=== PATIENT | female | born 1980 | race Caucasian/White ===

== ENCOUNTER 2020-09-06 08:44 | Outpatient (CLI) | payer BC | END 2020-09-06 08:45 | disposition home or self-care (01) | LOC: DTY/OP 08:44 | PROVIDERS: ATTEND Surgery | DX: Z68.42 Body mass index [BMI] 45.0-49.9, adult (principal) | CPT/HCPCS: 97802 ==

== ENCOUNTER 2021-02-28 09:13 | Outpatient (CLI) | payer BC | END 2021-02-28 09:14 | disposition home or self-care (01) | LOC: CTENTCT 09:13 | PROVIDERS: ATTEND Student in an Organized Health Care Education/Training Program | DX: J34.2 Deviated nasal septum (principal) | CPT/HCPCS: 70486 ==

== ENCOUNTER 2021-04-03 07:45 | Day surgery (SDC) | payer BC ==
[2021-04-02 10:01] VITALS: BMI 44.8
[2021-04-03] MEDS ORDERED: Fentanyl 250 MCG/5 ML VIAL ONE (08:24)
[2021-04-03] MEDS ORDERED: AFRIN NASAL MIST 15 ML BOT ONE ×2 (09:11→09:20)
[2021-04-03] MEDS ORDERED: Lidocaine 1% w/Epinephrine 1:100K 20 ML VIAL ONE (09:20)
[2021-04-03] MEDS ORDERED: Acetaminophen 500 MG TAB ONE (09:27)
[2021-04-03] MEDS ORDERED: Propofol 1,000 MG/100 ML VIAL IV ONE (09:28)
[2021-04-03] MEDS ORDERED: ePHEDrine Sulfate 50 MG/10 ML VIAL ONE (09:39)
[2021-04-03] MEDS ORDERED: Rocuronium Bromide 10 MG/ML (10ML VIAL) ONE (09:39)
[2021-04-03] MEDS ORDERED: Lidocaine 1% PF 5 ML VIAL ONE (09:39)
[2021-04-03] MEDS ORDERED: PROPOFOL 200 MG/20 ML VIAL ONE (09:39)
[2021-04-03] MEDS ORDERED: Ketorolac Tromethamine 30 MG/ML VIAL ONE (09:39)
[2021-04-03] MEDS ORDERED: Labetalol HCl 100 MG/20 ML VIAL ONE (09:39)
[2021-04-03] MEDS ORDERED: PHENYLEPHRINE-NS 100 MCG/ML 10 ML SYRINGE ONE (09:39)
[2021-04-03] MEDS ORDERED: Ondansetron PF 4 MG/2 ML Vial ONE (09:39)
[2021-04-03] MEDS ORDERED: Dexamethasone 20 MG/5 ML VIAL ONE (09:39)
[2021-04-03] MEDS ORDERED: Fentanyl 100 MCG/2 ML VIAL ONE (11:45)
== END 2021-04-03 15:15 | disposition home or self-care (01) ==
LOC: SDC 07:45
PROVIDERS: ATTEND Student in an Organized Health Care Education/Training Program
PROC: 09BL8ZZ Excision of Nasal Turbinate, Via Natural or Artificial Opening Endoscopic (ICD-10-PCS; principal; 2021-04-03)
PROC: 09SM4ZZ Reposition Nasal Septum, Percutaneous Endoscopic Approach (ICD-10-PCS; principal; 2021-04-03)
DX: J34.2 Deviated nasal septum (principal); J34.3 Hypertrophy of nasal turbinates; J01.91 Acute recurrent sinusitis, unspecified; J34.89 Other specified disorders of nose and nasal sinuses; J30.9 Allergic rhinitis, unspecified; K21.9 Gastro-esophageal reflux disease without esophagitis; I10 Essential (primary) hypertension; M17.11 Unilateral primary osteoarthritis, right knee; E66.9 Obesity, unspecified; Z68.41 Body mass index [BMI] 40.0-44.9, adult; Z79.899 Other long term (current) drug therapy
CPT/HCPCS: J0690; J1100; J1885; J2405; J2704; J3010

== ENCOUNTER 2022-07-22 10:58 | Outpatient (CLI) | payer BC | END 2022-07-22 10:59 | disposition home or self-care (01) | LOC: BICMAMMO 10:58 | PROVIDERS: ATTEND Student in an Organized Health Care Education/Training Program | DX: Z12.31 Encounter for screening mammogram for malignant neoplasm of breast (principal) | CPT/HCPCS: 77063; 77067 ==

== ENCOUNTER 2022-09-18 17:38 | Observation (INO) | payer BC ==
[2022-09-18 18:09] LABS: #Basophils 0.1 thou/uL (0.0-0.2); #Eosinphils 0.1 thou/uL (0.0-0.7); #Lymphocytes 4.4 thou/uL (1.20-3.40); #Monocytes 0.7 thou/uL (0.11-0.59); #Neutrophils 6.6 thou/uL (1.40-6.50); %Basophils 0.6 % (0.0-1.0); %Eosinophils 0.9 % (0.0-10.0); %Lymphocytes 36.8 % (21.0-51.0); %Monocytes 5.8 % (0.0-10.0); %Neutrophils 55.8 % (42.0-75.0); Hemoglobin 12.9 g/dL (12.0-16.0); Mean Corpuscular HGB CONC 31.9 g/dL (32.0-36.0); Mean Corpuscular Volume 78.3 fl (78.0-98.0); Mean Platelet Volume 7.7 fL (7.4-10.4); Platelet Count 262 10x3/uL (130-400); RBC Distribution Width 13.8 % (11.5-14.5); Red Blood Cell (RBC) Count 5.14 mill/uL (4.20-5.40); White Blood Cell (WBC) Count 11.8 10x3/uL (4.8-10.8)
[2022-09-18] MEDS ORDERED: Nitroglycerin 2% Ointment 1 INCH/1 GM Packet ONE (18:18)
[2022-09-18] MEDS ORDERED: Aspirin Chewable 81 MG TAB ONE (18:18)
[2022-09-18 18:48] LABS: ALT (SGPT) 13 U/L (8-55); AST (SGOT) 14 U/L (5-34); Albumin 3.8 g/dL (3.5-5.0); Alkaline Phosphatase 85 U/L (40-110); Anion Gap 14 mmol/L (10-20); BUN (Urea Nitrogen) 10 mg/dL (7.0-18.7); Bilirubin, Total 0.4 mg/dL (0.2-1.2); Calc. Creatinine Clearance 0 mL/min (70-130); Calcium 8.9 mg/dL (7.8-10.44); Carbon Dioxide 25 mmol/L (22-29); Chloride 101 mmol/L (98-107); Estimated GFR 93; Glucose 89 mg/dL (70-105); Lipase 19 U/L (8-78); Potassium 3.9 mmol/L (3.5-5.1); Protein, Total 6.8 g/dL (6.0-8.3); Sodium 136 mmol/L (136-145)
[2022-09-18] MEDS ORDERED: Ondansetron ODT 4 MG TAB PO PRN (21:35)
[2022-09-18] MEDS ORDERED: Acetaminophen 325 MG TAB PO PRN (21:35)
[2022-09-18] MEDS ORDERED: Nitroglycerin 0.4 MG TAB (25 Tab Bottle) SL PRN (21:36)
[2022-09-18 22:16] VITALS: BMI 46.2
[2022-09-19] MEDS: Nitroglycerin 2% Ointment 1 INCH/1 GM Packet TOP SCH ×4 (01:08→20:44)
[2022-09-19 04:58] LABS: #Eosinphils 0.1 thou/uL (0.0-0.7); #Lymphocytes 4.3 thou/uL (1.20-3.40); #Monocytes 0.6 thou/uL (0.11-0.59); #Neutrophils 4.1 thou/uL (1.40-6.50); %Basophils 0.4 % (0.0-1.0); %Eosinophils 1.4 % (0.0-10.0); %Lymphocytes 47.3 % (21.0-51.0); %Monocytes 6.3 % (0.0-10.0); %Neutrophils 44.6 % (42.0-75.0); Hemoglobin 11.9 g/dL (12.0-16.0); Mean Corpuscular HGB CONC 31.7 g/dL (32.0-36.0); Mean Corpuscular Hemoglobin 25.1 pg (27.0-31.0); Mean Platelet Volume 7.6 fL (7.4-10.4); Platelet Count 239 10x3/uL (130-400); RBC Distribution Width 13.7 % (11.5-14.5); Red Blood Cell (RBC) Count 4.73 mill/uL (4.20-5.40); White Blood Cell (WBC) Count 9.2 10x3/uL (4.8-10.8)
[2022-09-19 05:19] LABS: Anion Gap 9 mmol/L (10-20); BUN (Urea Nitrogen) 10 mg/dL (7.0-18.7); Calc. Creatinine Clearance 227 mL/min (70-130); Calcium 8.5 mg/dL (7.8-10.44); Carbon Dioxide 28 mmol/L (22-29); Cardiac Risk 4.5 (Less than 4.5); Chloride 105 mmol/L (98-107); Cholesterol 154 mg/dl (< 200 Desired); Estimated GFR 109; Glucose 95 mg/dL (70-105); HDL Cholesterol 34 mg/dL (>60 Neg Risk); LDL Cholesterol, Calculated 94 mg/dL; Magnesium 2.1 mg/dL (1.6-2.6); Potassium 3.4 mmol/L (3.5-5.1); Sodium 139 mmol/L (136-145); Triglycerides 132 mg/dL (Less than 150)
[2022-09-19] MEDS: Amlodipine 5 MG TAB PO SCH (08:06)
[2022-09-19] MEDS: Enoxaparin Sodium 40 MG/0.4 ML SYRINGE SC SCH (08:06)
[2022-09-19] MEDS: Aspirin Chewable 81 MG TAB PO SCH (08:06)
[2022-09-19] MEDS ORDERED: Regadenoson 0.4 MG/5 ML SYRINGE ONE (12:19)
[2022-09-19] MEDS ORDERED: Atorvastatin Calcium 40 MG TAB PO SCH (21:00)
[2022-09-20] MEDS ORDERED: Calcium Carbonate 500 MG ChewTAB PO PRN (00:19)
[2022-09-20 04:58] LABS: #Basophils 0.1 thou/uL (0.0-0.2); #Eosinphils 0.2 thou/uL (0.0-0.7); #Lymphocytes 4.2 thou/uL (1.20-3.40); #Monocytes 0.8 thou/uL (0.11-0.59); %Basophils 0.5 % (0.0-1.0); %Eosinophils 1.8 % (0.0-10.0); %Lymphocytes 46.1 % (21.0-51.0); %Monocytes 8.1 % (0.0-10.0); %Neutrophils 43.5 % (42.0-75.0); Hemoglobin 12.2 g/dL (12.0-16.0); Mean Corpuscular Hemoglobin 24.4 pg (27.0-31.0); Mean Corpuscular Volume 78.7 fl (78.0-98.0); Mean Platelet Volume 7.5 fL (7.4-10.4); Platelet Count 254 10x3/uL (130-400); RBC Distribution Width 13.7 % (11.5-14.5); Red Blood Cell (RBC) Count 4.98 mill/uL (4.20-5.40); White Blood Cell (WBC) Count 9.2 10x3/uL (4.8-10.8)
[2022-09-20 05:48] LABS: Anion Gap 11 mmol/L (10-20); BUN (Urea Nitrogen) 12 mg/dL (7.0-18.7); Calc. Creatinine Clearance 227 mL/min (70-130); Carbon Dioxide 23 mmol/L (22-29); Chloride 106 mmol/L (98-107); Estimated GFR 109; Glucose 95 mg/dL (70-105); Potassium 3.7 mmol/L (3.5-5.1); Sodium 136 mmol/L (136-145)
[2022-09-20] MEDS: Enoxaparin Sodium 40 MG/0.4 ML SYRINGE SC SCH (09:37)
[2022-09-20] MEDS: Aspirin Chewable 81 MG TAB PO SCH (09:37)
[2022-09-20] MEDS: Amlodipine 5 MG TAB PO SCH (09:38)
[2022-09-20] MEDS: Nitroglycerin 2% Ointment 1 INCH/1 GM Packet TOP SCH ×2 (10:09→13:22)
[2022-09-20 12:36] VITALS: BP 129/57; TEMP 97.6
[2022-09-21] MEDS ORDERED: FLU VACC QS2022-23(6MOS UP)/PF 60 MCG/0.5 ML SYRINGE IM ONE (09:00)
== END 2022-09-20 15:24 | disposition home or self-care (01) ==
LOC: ERS 17:38 → 2SW 20:44
PROVIDERS: ADMIT Student in an Organized Health Care Education/Training Program; ATTEND Internal Medicine
DX: R07.89 Other chest pain (principal); I10 Essential (primary) hypertension; K21.9 Gastro-esophageal reflux disease without esophagitis; R05.3 Chronic cough; M15.9 Polyosteoarthritis, unspecified; E66.9 Obesity, unspecified; Z68.42 Body mass index [BMI] 45.0-49.9, adult; Z79.899 Other long term (current) drug therapy; Z20.822 Contact with and (suspected) exposure to COVID-19
CPT/HCPCS: 36415; 71045; 78452; 80048; 80053; 80061; 83690; 83735; 83880; 84443; 84484; 85025; 85379; 93005; 93017; 93306; 96372; A9500; G0378; J1650; J2785; U0003; U0005

== ENCOUNTER 2022-10-30 06:51 | Day surgery (SDC) | payer BC ==
[2022-10-29 13:46] VITALS: BMI 46.3
[2022-10-30] MEDS ORDERED: Lidocaine 1% PF 5 ML VIAL ONE (09:46)
[2022-10-30] MEDS ORDERED: PROPOFOL 200 MG/20 ML VIAL ONE (09:46)
== END 2022-10-30 11:17 | disposition home or self-care (01) ==
LOC: SDC 06:51
PROVIDERS: ATTEND Internal Medicine Gastroenterology
PROC: 0DB68ZX Excision of Stomach, Via Natural or Artificial Opening Endoscopic, Diagnostic (ICD-10-PCS; principal; 2022-10-30)
PROC: 0DJD8ZZ Inspection of Lower Intestinal Tract, Via Natural or Artificial Opening Endoscopic (ICD-10-PCS; principal; 2022-10-30)
DX: D50.9 Iron deficiency anemia, unspecified (principal); K29.50 Unspecified chronic gastritis without bleeding; B96.81 Helicobacter pylori [H. pylori] as the cause of diseases classified elsewhere; K21.9 Gastro-esophageal reflux disease without esophagitis; K44.9 Diaphragmatic hernia without obstruction or gangrene; G89.29 Other chronic pain; R10.11 Right upper quadrant pain; K59.00 Constipation, unspecified; K76.0 Fatty (change of) liver, not elsewhere classified; M19.90 Unspecified osteoarthritis, unspecified site; I10 Essential (primary) hypertension; F17.290 Nicotine dependence, other tobacco product, uncomplicated; E66.01 Morbid (severe) obesity due to excess calories; Z68.42 Body mass index [BMI] 45.0-49.9, adult; Z79.899 Other long term (current) drug therapy
CPT/HCPCS: 88305; 88312; 88313; 88342; J2704

== ENCOUNTER 2022-11-14 09:03 | Outpatient (CLI) | payer BC ==
[2022-11-14] MEDS ORDERED: Iopamidol-370 76% 500 ML 1 ML ONE (14:11)
== END 2022-11-14 09:04 | disposition home or self-care (01) ==
LOC: BICCT 09:03
PROVIDERS: ATTEND Internal Medicine Gastroenterology
DX: R31.9 Hematuria, unspecified (principal); R10.9 Unspecified abdominal pain
CPT/HCPCS: 74178; Q9967

== ENCOUNTER 2023-09-22 13:37 | Outpatient (CLI) | payer BC | END 2023-09-22 13:38 | disposition home or self-care (01) | LOC: BICMAMMO 13:37 | PROVIDERS: ATTEND Family Medicine | DX: N64.4 Mastodynia (principal) | CPT/HCPCS: 77066; G0279 ==

== ENCOUNTER 2023-11-21 12:58 | Outpatient (CLI) | payer BC | END 2023-11-21 12:59 | disposition home or self-care (01) | LOC: ULT 12:58 | PROVIDERS: ATTEND Family Medicine | DX: R10.11 Right upper quadrant pain (principal); R16.0 Hepatomegaly, not elsewhere classified; K82.8 Other specified diseases of gallbladder | CPT/HCPCS: 76705 ==